=== PATIENT | male | born 1985 | race African-American/Black ===

== ENCOUNTER → 2021-06-07 | Emergency (ER) | payer SELFPAY ==
[~2021-06-07] VITALS: Ht 170.2 cm; Wt 78.0 kg
[2021-06-07 18:18] VITALS: BP 152/90
--- NOTE | 2021-06-07 18:38 | NUR ---
AMBULATED WITH STEADY GAIT IN HALLWAY,ASKED IF HE'S DONE. WHEN TOLD TO GO BACK TO HIS BE TO WAIT FOR DR NELSON,HE PROCEEDED TO WALK TOWARDS THE DOOR. DR NELSON AWARE
== END | disposition left against medical advice (07) ==
LOC: ER 18:56
DX: Z53.21 Procedure and treatment not carried out due to patient leaving prior to being seen by health care provider (principal)